=== PATIENT | female | born 1985 | race Caucasian/White ===

== ENCOUNTER 2017-11-02 08:20 | Emergency (ER) | payer OTHER ==
[2017-11-02 08:50] VITALS: BP 125/69
--- NOTE | 2017-11-02 08:58 | UC ---
Throat Pain/[place] HPI - HPI Summary HPI Summary: nasal congestion / sore throat x 3 days + dry cough , chest congestion , no fever, + chills - History of Current Complaint Chief Complaint: UCRespiratory Stated Complaint: KAM,FEVER,ST,EARS Time Seen by Provider: 11/02/17 08:47 Hx Obtained From: Patient Hx Last Menstrual Period: 10/10/17 Onset/Duration: Gradual Onset, Lasting Days - 3, Still Present Severity: Moderate Pain Intensity: 5 Cough: Nonproductive Associated Signs & Symptoms: Positive: Sinus Discomfort, Nasal Discharge. Negative: Wheezing, Hoarseness, Fever, Vomiting, Rash - Allergies/Home Medications Allergies/Adverse Reactions: Allergies Allergy/AdvReac Type Severity Reaction Status Date / Time clarithromycin Allergy GI Upset Verified 11/02/17 08:41 Home Medications: Home Medications Cholecalciferol (Vitamin D3) [Vitamin D3] 10,000 unit PO WEEKLY 11/02/17 [ History Confirmed 11/02/17] Ergocalciferol (Vitamin D2) [Vitamin D2] 2,000 unit PO DAILY 11/02/17 [History Confirmed 11/02/17] Intiveu SEE INSTRUCTIONS 11/02/17 [History] buPROPion SR TAB* [Wellbutrin SR TAB*] 100 mg PO DAILY 11/02/17 [History Confirmed 11/02/17] PMH/Surg Hx/FS Hx/Imm Hx - Additional Past Medical History Additional PMH: crohn's disease depression celiac - Surgical History Surgical History: Yes Surgery Procedure, Year, and Place: shan. iliectomy - Family History Known Family History: Negative: Diabetes - Social History Alcohol Use: Occasionally Substance Use Type: None Smoking Status (MU): Heavy Every Day Tobacco Smoker Type: Cigarettes Amount Used/How Often: 10 cigarettes daily Length of Time of Smoking/Using Tobacco: 16 yo Household Exposure Type: Cigarettes Review of Systems Constitutional: Negative Skin: Negative Eyes: Negative ENT: Sore Throat, Nasal Discharge Respiratory: Cough Cardiovascular: Negative Gastrointestinal: Negative Is Patient Immunocompromised?: No All Other Systems Reviewed And Are Negative: Yes Physical Exam Triage Information Reviewed: Yes Appearance: Well-Appearing, No Pain Distress, Well-Nourished Vital Signs: Initial Vital Signs Temp 97.8 F 11/02/17 08:46 Pulse 98 11/02/17 08:46 Resp 24 11/02/17 08:46 BP 125/69 03/13/18 08:46 Pulse Ox 99 11/02/17 08:46 Vital Signs Reviewed: Yes Eyes: Positive: Conjunctiva Clear ENT: Positive: Normal ENT inspection, Hearing grossly normal, Pharynx normal, Nasal drainage, TMs normal. Negative: TM bulging, TM dull, TM red, Tonsillar swelling, Tonsillar exudate Neck: Positive: Supple, Nontender, No Lymphadenopathy Respiratory: Positive: Chest non-tender, Lungs clear, Normal breath sounds Cardiovascular: Positive: RRR, No Murmur, Pulses Normal Skin Exam: Normal Throat Pain/Nasal Course/Dx - Differential Dx/Diagnosis Provider Diagnoses: URI Discharge - Discharge Plan Condition: Stable Disposition: HOME Patient Education Materials: Upper Respiratory Infection (ED) Referrals: Katelyn Griffiths MD [Primary Care Provider] - If Needed
== END 2017-11-02 08:58 | disposition home or self-care (01) ==
LOC: UCCORT 08:20
DX: J06.9 Acute upper respiratory infection, unspecified (principal); K50.90 Crohn's disease, unspecified, without complications; K90.0 Celiac disease; F32.9 Major depressive disorder, single episode, unspecified; Z88.1 Allergy status to other antibiotic agents; F17.210 Nicotine dependence, cigarettes, uncomplicated
CPT/HCPCS: 99211; G0463

== ENCOUNTER 2018-01-11 16:00 | Emergency (ER) | payer OTHER ==
[2018-01-11 17:16] VITALS: BP 125/65
--- NOTE | 2018-01-11 17:33 | ED ---
Throat Pain/Nasal Congestion - HPI Summary HPI Summary: 32 yr old female with the complaint of right ear pain for four to five days, sinus congestion and now left ear pain. She feels like she has an ear infection . 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 - History of Current Complaint Chief Complaint: UCRespiratory Time Seen by Provider: 01/11/18 17:15 - Allergies/Home Medications Allergies/Adverse Reactions: Allergies Allergy/AdvReac Type Severity Reaction Status Date / Time clarithromycin Allergy GI Upset Verified 01/11/18 17:11 Home Medications: Home Medications Levocetirizine Dihydrochloride [Xyzal] 1 tab DAILY 01/11/18 [History Confirmed 01/11/18] PMH/Surg Hx/FS Hx/Imm Hx GI History: Reports: Hx Crohn's Disease - Surgical History Surgery Procedure, Year, and Place: shan. iliectomy. hernia repair 12/02/17 Infectious Disease History: No Infectious Disease History: Denies: Traveled Outside the [place] in Last 30 Days - Family History Known Family History: Negative: Diabetes - Social History Occupation: Employed Full-time Alcohol Use: None Substance Use Type: Reports: None Smoking Status (MU): Former Smoker Type: Cigarettes Amount Used/How Often: 10 cigarettes daily Length of Time of Smoking/Using Tobacco: 16 yo Have You Smoked in the Last Year: Yes Review of Systems Constitutional: Negative Positive: Sore Throat, Ear Ache All Other Systems Reviewed And Are Negative: Yes Physical Exam Triage Information Reviewed: Yes Vital Signs On Initial Exam: Initial Vitals Temp Pulse Resp BP Pulse Ox 97.6 F 92 18 125/65 99 01/11/18 17:12 01/11/18 17:12 01/11/18 17:12 01/11/18 17:12 01/11/18 17:12 Vital Signs Reviewed: Yes Appearance: Positive: Well-Appearing, No Pain Distress Skin: Positive: Warm, Skin Color Reflects Adequate Perfusion Head/Face: Positive: Normal Head/Face Inspection Eyes: Positive: EOMI ENT: Positive: Pharyngeal erythema, TM bulging - left, TM red - left, Uvula midline. Negative: Muffled voice, Hoarse voice Neck: Positive: Supple, Nontender Respiratory/Lung Sounds: Positive: Clear to Auscultation, Breath Sounds Present Cardiovascular: Positive: RRR. Negative: Murmur Abdomen Description: Positive: Nontender Musculoskeletal: Positive: Strength/ROM Intact Neurological: Positive: Sensory/Motor Intact, Alert, Oriented to Person Place, Time, CN Intact II-III Psychiatric: Positive: Normal AVPU Assessment: Alert - Dana Coma Scale Best Eye Response: 4 - Spontaneous Best Motor Response: 6 - Obeys Commands Best Verbal Response: 5 - Oriented Coma Scale Total: 15 Diagnostics - Vital Signs Vital Signs Temp Pulse Resp BP Pulse Ox 01/11/18 17:12 97.6 F 92 18 125/65 99 - Laboratory Lab Statement: Any lab studies that have been ordered have been reviewed, and results considered in the medical decision making process. EENT Course/Dx - Course Course Of Treatment: 32 yr old with URI symptoms and now has OM. Rx with augmentin. - Diagnoses Provider Diagnoses: Otitis media Discharge - Sign-Out/Discharge Documenting (check all that apply): Discharge/Admit/Transfer - Discharge Plan Condition: Good Disposition: HOME Prescriptions: Amoxicillin/Clavulanate TAB* [Augmentin TAB 875*] 875 mg PO BID #20 tab Patient Education Materials: Ear Infection (ED) Referrals: Katelyn Griffiths MD [Primary Care Provider] - 2 Days - Billing Disposition and Condition Condition: GOOD Disposition: HOME
== END 2018-01-11 17:37 | disposition home or self-care (01) ==
LOC: UCCORT 16:00
DX: H66.92 Otitis media, unspecified, left ear (principal); Z88.1 Allergy status to other antibiotic agents; Z87.891 Personal history of nicotine dependence
CPT/HCPCS: 99212; G0463

== ENCOUNTER 2018-10-01 09:04 | Emergency (ER) | payer OTHER ==
[2018-10-01 10:07] VITALS: BP 135/68
--- NOTE | 2018-10-01 10:11 | UC ---
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 Her daughter was dx'd with influenza on 09/28/18. Denies fever." +Crohns disease. had infusion yesterday. has some pressure over her forehead adn cheeks. + nasal dc. no n/v/d. - History of Current Complaint Chief Complaint: UCGeneralIllness Stated Complaint: THROAT,SINUS PRESSURE Time Seen by Provider: 10/01/18 09:54 Hx Last Menstrual Period: 09/25/18 Pain Intensity: 6 - Allergies/Home Medications Allergies/Adverse Reactions: Allergies Allergy/AdvReac Type Severity Reaction Status Date / Time clarithromycin AdvReac GI Upset Verified 10/01/18 10:07 PMH/Surg Hx/FS Hx/Imm Hx Previously Healthy: Yes GI/ History: Other - Crohn's - Surgical History Surgical History: Yes Surgery Procedure, Year, and Place: shan. iliectomy. hernia repair 12/02/17 - Family History Known Family History: Negative: Diabetes - Social History Alcohol Use: None Substance Use Type: None Smoking Status (MU): Former Smoker Type: Cigarettes Amount Used/How Often: 10 cigarettes daily Length of Time of Smoking/Using Tobacco: 16 yo Have You Smoked in the Last Year: Yes When Did the Patient Quit Smoking/Using Tobacco: 12/01/17 Household Exposure Type: Cigarettes - Immunization History Most Recent Tetanus Shot: UTD Review of Systems All Other Systems Reviewed And Are Negative: Yes Constitutional: Positive: Fatigue Skin: Positive: Negative Eyes: Positive: Negative ENT: Positive: Sore Throat - 6/10, Ear Ache, Nasal Discharge Respiratory: Positive: Cough Cardiovascular: Positive: Negative Gastrointestinal: Positive: Negative Genitourinary: Positive: Negative Motor: Positive: Negative Neurovascular: Positive: Negative Musculoskeletal: Positive: Negative Neurological: Positive: Negative Psychological: Positive: Negative Is Patient Immunocompromised?: No Physical Exam Triage Information Reviewed: Yes Appearance: Well-Nourished, Ill-Appearing - mild Vital Signs: Initial Vital Signs Temp 97.4 F 10/01/18 10:03 Pulse 114 10/01/18 10:03 Resp 19 10/01/18 10:03 BP 135/68 10/01/18 10:03 Pulse Ox 98 10/01/18 10:03 Vital Signs Reviewed: Yes Eye Exam: Normal ENT: Positive: Pharyngeal erythema - +PND, Nasal congestion, Nasal drainage, TMs normal, Uvula midline. Negative: TM bulging, TM dull, TM red, Tonsillar swelling, Tonsillar exudate, Dental tenderness, Sinus tenderness Dental Exam: Normal Neck exam: Normal Neck: Positive: Supple, Nontender, No Lymphadenopathy Respiratory Exam: Normal Respiratory: Positive: Lungs clear, Normal breath sounds, No respiratory distress, No accessory muscle use. Negative: Crackles, Rhonchi, Stridor, Wheezing Cardiovascular Exam: Normal Cardiovascular: Positive: RRR, No Murmur Abdominal Exam: Normal Abdomen Description: Positive: Nontender, Soft Musculoskeletal Exam: Normal Neurological Exam: Normal Psychological Exam: Normal Skin Exam: Normal UC Diagnostic Evaluation - Laboratory O2 Sat by Pulse Oximetry: 98 Respiratory Course/Dx - Course Course Of Treatment: RF & R strep both neg - Differential Dx/Diagnosis Differential Diagnosis/HQI/PQRI: Asthma, Bronchitis, Influenza, Laryngitis, Lower Resp Infection, Sinusitis Provider Diagnosis: Upper respiratory disease Discharge - Sign-Out/Discharge Documenting (check all that apply): Patient Departure All imaging exams completed and their final reports reviewed: No Studies - Discharge Plan Condition: Stable Disposition: HOME Patient Education Materials: Upper Respiratory Infection (ED) Referrals: Merced Bradley MD [Primary Care Provider] - 6 Days Additional Instructions: Rapid flu & strep cultures are both negative. There is no evidence for any bacterial infections at this time. You should be seen if symptoms worsen or persist. Tyelnol may be helpful. Fluids and rest. - Billing Disposition and Condition Condition: STABLE Disposition: Home
[2018-10-01 10:31] LABS: Influenza A Molecular NEGATIVE (Negative); Influenza B Molecular NEGATIVE (Negative)
== END 2018-10-01 10:58 | disposition home or self-care (01) ==
LOC: UCCORT 09:04
DX: J06.9 Acute upper respiratory infection, unspecified (principal); K50.90 Crohn's disease, unspecified, without complications; Z87.891 Personal history of nicotine dependence; Z88.1 Allergy status to other antibiotic agents
CPT/HCPCS: 87651; 99211; G0463

== ENCOUNTER 2019-05-17 19:49 | Emergency (ER) | payer OTHER ==
[2019-05-17 20:19] VITALS: BP 129/57
--- NOTE | 2019-05-17 20:44 | UC ---
Complaint Female HPI - HPI Summary HPI Summary: 34-year-old female presents with 2 day history of dysuria, frequency, urgency, and hematuria. Denies fever, chills, abdominal pain, back or flank pain, nausea , vomiting, vaginal discharge, or abnormal bleeding. - History Of Current Complaint Chief Complaint: UCGU Stated Complaint: URINARY Time Seen by Provider: 05/17/19 20:33 Hx Obtained From: Patient Hx Last Menstrual Period: 09/25/18 Pain Intensity: 0 - Allergies/Home Medications Allergies/Adverse Reactions: Allergies Allergy/AdvReac Type Severity Reaction Status Date / Time clarithromycin AdvReac GI Upset Verified 05/17/19 20:20 PMH/Surg Hx/FS Hx/Imm Hx GI/ History: Other - Crohn's disease - Surgical History Surgical History: Yes Surgery Procedure, Year, and Place: shan. iliectomy. hernia repair 12/02/17. gastric sleeve 03/27/2019 - Family History Known Family History: Positive: Non-Contributory - Social History Occupation: Employed Full-time Alcohol Use: None Substance Use Type: None Smoking Status (MU): Former Smoker Type: Cigarettes Amount Used/How Often: 10 cigarettes daily Length of Time of Smoking/Using Tobacco: 16 yo Have You Smoked in the Last Year: Yes When Did the Patient Quit Smoking/Using Tobacco: 12/01/17 Household Exposure Type: Cigarettes - Immunization History Most Recent Tetanus Shot: UTD Review of Systems All Other Systems Reviewed And Are Negative: Yes Constitutional: Negative: Fever, Chills Respiratory: Positive: Negative Cardiovascular: Positive: Negative Gastrointestinal: Negative: Abdominal Pain, Vomiting, Nausea Genitourinary: Positive: Dysuria, Hematuria, Frequency, Urgency. Negative: Vaginal/Penile Discharge, Abnormal Bleeding Musculoskeletal: Positive: Negative Neurological: Positive: Negative Is Patient Immunocompromised?: No Physical Exam - Summary Physical Exam Summary: GENERAL APPEARANCE: Well developed, well nourished, alert and cooperative, and appears to be in no acute distress. CARDIAC: Normal S1 and S2. No S3, S4 or murmurs. Rhythm is regular. There is no peripheral edema, cyanosis or pallor. Extremities are warm and well perfused. Capillary refill is less than 2 seconds. Peripheral pulses intact. LUNGS: Clear to auscultation without rales, rhonchi, wheezing or diminished breath sounds. ABDOMEN: Positive bowel sounds. Soft, nondistended, nontender. No guarding or rebound. No masses or hepatosplenomegally. No CVA tenderness. MUSKULOSKELETAL: ROM intact to all extremities. No joint erythema or tenderness. Normal muscular development. Normal gait. SKIN: Skin normal color, texture and turgor with no lesions or eruptions. Triage Information Reviewed: Yes Vital Signs: Initial Vital Signs Temp 97.7 F 05/17/19 20:14 Pulse 72 05/17/19 20:14 Resp 18 05/17/19 20:14 BP 129/57 05/17/19 20:14 Pulse Ox 99 05/17/19 20:14 Vital Signs Reviewed: Yes Complaint Female Dx - Course Course Of Treatment: 34-year-old female presents with 2 day history of dysuria, frequency, urgency, and hematuria. Denies fever, chills, abdominal pain, back or flank pain, nausea , vomiting, vaginal discharge, or abnormal bleeding. Afebrile. Vital signs stable. Exam was overall unremarkable. [id number] urinalysis showed 1+ leukocyte esterase, 1+ blood, 1+ protein, 1+ ketones, and 1+ bilirubin. Will treat empirically for urinary tract infection with Bactrim DS 1 tablet twice daily 5 days and provided her with Pyridium 100 mg 3 times a day 2 days to help with the discomfort. First doses of each these medications were given in the clinic. She is to follow-up with her primary care provider in 3-5 days if symptoms are not improving. Anticipatory guidance warning symptoms of the patient. Verbalizes understanding and agrees with care. - Differential Dx/Diagnosis Differential Diagnosis/HQI/PQRI: Pelvic Inflammatory Disease, Renal Colic, Urinary Tract Infection Provider Diagnosis: UTI (urinary tract infection) Discharge ED - Sign-Out/Discharge Documenting (check all that apply): Patient Departure All imaging exams completed and their final reports reviewed: No Studies - Discharge Plan Condition: Stable Disposition: HOME Prescriptions: Phenazopyridine TAB* [Pyridium 100 mg TAB*] 100 mg PO TID #5 tab Sulfamethox/Trimethoprim DS* [Bactrim DS 800/160 TAB*] 1 tab PO BID #9 tab Patient Education Materials: Urinary Tract Infection in Women (ED) Referrals: CHARLIE Ramirez [Primary Care Provider] - Additional Instructions: Your urine test in the clinic today is suggestive of a urinary tract infection. We will start you on an antibiotic to treat for the infection. We will also send a urine culture today to see what bacteria grow out and make sure the antibiotic you were prescribed is appropriate to treat the infection. It will take 48-72 hours to get these results. We will contact you if there is any change in your treatment plan. Start Bactrim DS 1 tab twice a day for 5 days. We gave you the first dose in the clinic. Take Pyridium 1 tablet every 8 hours for next 2 days to help with the discomfort. This medication will turn your urine an orange color. We gave you the first dose in the clinic. Drink plenty of fluids. To help prevent urinary tract infections: 1) Be sure to wipe from front to back. 2) Urinate immediately after any sexual intercourse. 3) Avoid taking bubble baths. Follow up with your primary care provider in 3-5 days if symptoms persist. Seek immediate medical attention in the emergency room if you develop fever greater than 100.5 F, have severe abdominal pain, persistent vomiting, or any worsening of symptoms. - Billing Disposition and Condition Condition: STABLE Disposition: Home
[2019-05-17] MEDS ORDERED: Sulfamethox/Trimethoprim DS 800/160* TAB PO ONE (20:52)
[2019-05-17] MEDS ORDERED: Phenazopyridine TAB* 100 MG PO ONE (20:52)
--- NOTE | 2019-05-20 07:33 | UC ---
- Progress Note Progress Note: Please inform patient urine culture showed no growth of bacteria, no UTI. She can discontinue Bactrim that was prescribed. Course/Dx - Diagnoses Provider Diagnoses: UTI (urinary tract infection) Discharge ED - Sign-Out/Discharge Documenting (check all that apply): Post-Discharge Follow Up All imaging exams completed and their final reports reviewed: No Studies - Discharge Plan Condition: Stable Disposition: HOME Prescriptions: Phenazopyridine TAB* [Pyridium 100 mg TAB*] 100 mg PO TID #5 tab Sulfamethox/Trimethoprim DS* [Bactrim DS 800/160 TAB*] 1 tab PO BID #9 tab Patient Education Materials: Urinary Tract Infection in Women (ED) Referrals: CHARLIE Ramirez [Primary Care Provider] - Additional Instructions: Your urine test in the clinic today is suggestive of a urinary tract infection. We will start you on an antibiotic to treat for the infection. We will also send a urine culture today to see what bacteria grow out and make sure the antibiotic you were prescribed is appropriate to treat the infection. It will take 48-72 hours to get these results. We will contact you if there is any change in your treatment plan. Start Bactrim DS 1 tab twice a day for 5 days. We gave you the first dose in the clinic. Take Pyridium 1 tablet every 8 hours for next 2 days to help with the discomfort. This medication will turn your urine an orange color. We gave you the first dose in the clinic. Drink plenty of fluids. To help prevent urinary tract infections: 1) Be sure to wipe from front to back. 2) Urinate immediately after any sexual intercourse. 3) Avoid taking bubble baths. Follow up with your primary care provider in 3-5 days if symptoms persist. Seek immediate medical attention in the emergency room if you develop fever greater than 100.5 F, have severe abdominal pain, persistent vomiting, or any worsening of symptoms. - Billing Disposition and Condition Condition: STABLE Disposition: Home
== END 2019-05-17 21:01 | disposition home or self-care (01) ==
LOC: UCCORT 19:49
DX: N39.0 Urinary tract infection, site not specified (principal); Z88.1 Allergy status to other antibiotic agents; Z87.891 Personal history of nicotine dependence
CPT/HCPCS: 81003; 87086; 99212; A9270-GY; G0463

== ENCOUNTER 2019-10-24 15:14 | Emergency (ER) | payer OTHER ==
[2019-10-24 16:52] VITALS: BP 122/72
--- NOTE | 2019-10-24 16:58 | UC ---
Throat Pain/[place] HPI - HPI Summary HPI Summary: Patient is a 34yo female presenting with sore throat x3 days. Patient states the pain radiates onto her right ear and jaw. Denies difficulty eating or swallowing. Denies nasal congestion. Denies cough. Denies n/v. Denies fever and chills. Denies taking anything for symptom relief. 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 - History of Current Complaint Chief Complaint: UCGeneralIllness Stated Complaint: SORE THROAT, EAR PAIN Hx Obtained From: Patient Hx Last Menstrual Period: 10/24/19 Pain Intensity: 4 Pain Scale Used: 0-10 Numeric - Allergies/Home Medications Allergies/Adverse Reactions: Allergies Allergy/AdvReac Type Severity Reaction Status Date / Time clarithromycin AdvReac GI Upset Verified 10/24/19 16:52 Home Medications: Home Medications Ergocalciferol (Vitamin D2) [Vitamin D2] 2,000 unit PO DAILY 11/02/17 [History Confirmed 10/24/19] Intiveu 1 infus.set IV SEE INSTRUCTIONS 11/02/17 [History Confirmed 10/24/19] buPROPion SR TAB* [Wellbutrin SR TAB*] 150 mg PO DAILY 11/02/17 [History Confirmed 10/24/19] Levocetirizine Dihydrochloride [Xyzal] 1 tab PO DAILY 01/11/18 [History Confirmed 10/24/19] Omeprazole CAP (NF) [Prilosec CAP* 20 MG] 20 mg PO DAILY 10/24/19 [History Confirmed 10/24/19] PMH/Surg Hx/FS Hx/Imm Hx - Surgical History Surgical History: Yes Surgery Procedure, Year, and Place: shan. iliectomy. hernia repair 12/02/17. gastric sleeve 03/27/2019 - Family History Known Family History: Positive: Non-Contributory Negative: Diabetes - Social History Alcohol Use: None Substance Use Type: None Smoking Status (MU): Former Smoker Type: Cigarettes Amount Used/How Often: 10 cigarettes daily Length of Time of Smoking/Using Tobacco: 16 yo Have You Smoked in the Last Year: Yes When Did the Patient Quit Smoking/Using Tobacco: 12/01/17 Household Exposure Type: Cigarettes - Immunization History Most Recent Tetanus Shot: UTD Review of Systems All Other Systems Reviewed And Are Negative: Yes Constitutional: Positive: Negative ENT: Positive: Sore Throat, Ear Ache - right Respiratory: Positive: Negative Cardiovascular: Positive: Negative Gastrointestinal: Positive: Negative Musculoskeletal: Positive: Negative Neurological/Mental Status: Positive: Negative Physical Exam - Summary Physical Exam Summary: Vital Signs Reviewed: Yes A+Ox3, no distress, well-appearing Eyes: Conjunctiva Clear ENT: Hearing grossly normal, TM x 2 clear, moist, uvula midline, no exudate, + mild pharyngeal erythema, no tonsillar edema Neck: Positive: Supple, no lymphadenopathy Respiratory: Positive: No respiratory distress, No accessory muscle use + CTA throughout no w/r Cardiovascular: RRR nl s1, s2 no m/r Musculoskeletal Exam: ROTHMAN x 4 without difficulty Neurological: Positive: Alert Psychological: Positive: age appropriate behavior Skin: Positive: no rash, no ecchymosis Vital Signs: Initial Vital Signs Temp 97.4 F 10/24/19 16:49 Pulse 76 10/24/19 16:49 Resp 16 10/24/19 16:49 BP 122/72 10/24/19 16:49 Pulse Ox 100 10/24/19 16:49 Lab Results 10/24/19 10/24/19 Range/Units 17:07 17:10 Influenza A (Rapid) Negative (Negative) Influenza B (Rapid) Negative (Negative) Group A Strep Rapid Negative (Negative) Throat Pain/Nasal Course/Dx - Course Course Of Treatment: NEgatvie rapid strep and flu tests. Discussed likely viral etiology of pharyngitis and instructed to continue with symptomatic treatment. Patient voiced understanding and agreed with treatment plan. - Differential Dx/Diagnosis Differential Diagnosis/HQI/PQRI: Influenza, Otitis Media, Pharyngitis, Tonsillitis, URI Provider Diagnosis: Pharyngitis Discharge ED - Sign-Out/Discharge Documenting (check all that apply): Patient Departure All imaging exams completed and their final reports reviewed: No Studies - Discharge Plan Condition: Stable Disposition: HOME Patient Education Materials: Pharyngitis (ED) Referrals: [facility] [Outside] - If Needed Additional Instructions: Your strep and flu tests were negative today. Your symptoms are likely caused by a virus and should resolve without treatment. You may take ibuprofen or Tylenol as directed for pain relief. Throat lozenges, sprays, and he was unable to help alleviate sore throat. Follow-up with her primary care provider or the [facility] clinic listed below symptoms do not improve within 7-10 days. - Billing Disposition and Condition Condition: STABLE Disposition: Home - Attestation Statements Provider Attestation: This patient was not seen by me. I was available for consult. Chart reviewed. TESHA
[2019-10-24 17:21] LABS: Influenza A Molecular Negative (Negative); Influenza B Molecular Negative (Negative)
== END 2019-10-24 17:36 | disposition home or self-care (01) ==
LOC: UCCORT 15:14
DX: J02.9 Acute pharyngitis, unspecified (principal); H92.01 Otalgia, right ear; Z88.1 Allergy status to other antibiotic agents; Z87.891 Personal history of nicotine dependence
CPT/HCPCS: 87651; 99211; G0463